=== PATIENT | female | born 1995 | race Two or more races ===

== ENCOUNTER → 2020-01-24 | Outpatient (CLI) | payer OTHER | END | disposition home or self-care (01) | LOC: PRENATAL 14:00 | DX: O35.3XX1 Maternal care for (suspected) damage to fetus from viral disease in mother, fetus 1 (principal); Z36.89 Encounter for other specified antenatal screening ==

== ENCOUNTER → 2020-04-18 | Outpatient (CLI) | payer OTHER | END | disposition home or self-care (01) | LOC: PRENATAL 08:30 | PROVIDERS: ATTEND Obstetrics & Gynecology | DX: O26.843 Uterine size-date discrepancy, third trimester (principal); O36.8131 Decreased fetal movements, third trimester, fetus 1 ==

== ENCOUNTER 2020-05-22 18:12 | Inpatient (IN) | payer OTHER ==
[~2020-05-22] VITALS: Ht 162.6 cm; Wt 77.6 kg
[2020-05-22] MEDS ORDERED: PRENATAL TABLE1 EACH PO (21:10)
[2020-05-22] MEDS ORDERED: VALTREX1000 MG PO (21:10)
== END 2020-05-25 13:09 | disposition home or self-care (01) | DRG 807 ==
LOC: LDR 18:12 → OB/GYN 05-23 20:43
PROVIDERS: ADMIT Obstetrics & Gynecology; ATTEND Obstetrics & Gynecology
PROC: 10907ZC Drainage of Amniotic Fluid, Therapeutic from Products of Conception, Via Natural or Artificial Opening (ICD-10-PCS; 2020-05-22)
PROC: 3E0P7VZ Introduction of Hormone into Female Reproductive, Via Natural or Artificial Opening (ICD-10-PCS; 2020-05-22)
PROC: 4A1HXCZ Monitoring of Products of Conception, Cardiac Rate, External Approach (ICD-10-PCS; 2020-05-22)
PROC: 10E0XZZ Delivery of Products of Conception, External Approach (ICD-10-PCS; principal; 2020-05-23)
PROC: 0KQM0ZZ Repair Perineum Muscle, Open Approach (ICD-10-PCS; 2020-05-23)
PROC: 3E033VJ Introduction of Other Hormone into Peripheral Vein, Percutaneous Approach (ICD-10-PCS; 2020-05-23)
DX: O70.1 Second degree perineal laceration during delivery (principal); Z37.0 Single live birth; Z3A.38 38 weeks gestation of pregnancy; Z20.828 Contact with and (suspected) exposure to other viral communicable diseases

== ENCOUNTER 2021-05-27 09:20 | Emergency (ER) | payer OTHER ==
[~2021-05-27] VITALS: Ht 162.6 cm; Wt 59.0 kg
[~2021-05-27 09:20] MED LIST: PRENATAL TABLE1 EACH PO; VALTREX1000 MG PO
[2021-05-27] MEDS ORDERED: ZITHROMAX500 MG PO (12:01)
== END 2021-05-27 12:08 | disposition home or self-care (01) ==
LOC: ER 09:20
DX: B34.9 Viral infection, unspecified (principal); Z03.818 Encounter for observation for suspected exposure to other biological agents ruled out